=== PATIENT | female | born 1940 ===

== ENCOUNTER → 2021-01-12 08:00 | Outpatient (CLI) | payer OTHER ==
[~2021-01-12 08:00] MED LIST: ALB PO; ASA81 MG PO; ATORVASTATIN PO; AVAPRO150 MG PO; DIGOX PO; DILTIAZEM 24HR180 MG PO; HUMALOG100 UNIT/2 SQ; LANTUS SOL100 UNIT/1; SYNTHROID100 MCG PO; SYNTHROID112 MCG PO
== END | disposition home or self-care (01) ==
LOC: LAB 08:00 → ADM 09:45 → EDSTATUS 01-19 09:45 → CIR.AMB 01-19 09:45
PROVIDERS: ATTEND Orthopaedic Surgery Hand Surgery
DX: M65.341 Trigger finger, right ring finger (principal); Z01.810 Encounter for preprocedural cardiovascular examination; Z01.812 Encounter for preprocedural laboratory examination; Z01.811 Encounter for preprocedural respiratory examination; Z20.822 Contact with and (suspected) exposure to COVID-19